=== PATIENT | male | born 1965 | race Caucasian/White ===

== ENCOUNTER → 2016-09-11 | Outpatient (CLI) | payer BC | LOC: RADMRIMAIN 15:44 | PROVIDERS: ATTEND Orthopaedic Surgery | DX: Z53.9 Procedure and treatment not carried out, unspecified reason (principal) ==

== ENCOUNTER → 2016-10-25 | Outpatient (CLI) | payer BC ==
[2016-10-25 18:01] LABS: ALT 55 U/L (21-72); AST 44 U/L (17-59); Alkaline Phosphatase 49 U/L (38-126); Anion Gap 11 mmol/L; Blood Urea Nitrogen 26 mg/dL (9-20); Calcium 9.5 mg/dL (8.4-10.2); Carbon Dioxide 26 mmol/L (22-30); Chloride 105 mmol/L (98-107); Glucose 83 mg/dL (74-99); Non-African American GFR(MDRD) 58 (>60 ml/min/1.73 sqM); Potassium 4.6 mmol/L (3.5-5.1); Sodium 142 mmol/L (137-145); Total Bilirubin 0.4 mg/dL (0.2-1.3); Total Protein 7.6 g/dL (6.3-8.2)
[2016-10-25 18:17] LABS: Follicle Stimulating Hormone 6.7 mIU/mL (1.6-9.7); Prolactin 18.2 ng/mL (3.7-17.9)
== END | disposition home or self-care (01) ==
LOC: LABWHC1 16:15
PROVIDERS: ATTEND Internal Medicine Endocrinology, Diabetes & Metabolism
DX: E29.1 Testicular hypofunction (principal)
CPT/HCPCS: 36415; 80053; 83001; 83002; 84146; 84153; 84403

== ENCOUNTER → 2016-10-25 | Outpatient (CLI) | payer BC ==
[2016-10-25 16:39] LABS: EKG EKG PERFORMED
[2016-10-25 17:53] LABS: Basophils # (A) 0.1 k/uL (0-0.2); Basophils % (A) 1 %; CH 30.4; Eosinophils # (A) 0.3 k/uL (0-0.7); Eosinophils % (A) 3 %; HCT 47.1 % (39.0-53.0); HDW 2.77; HGB 15.7 gm/dL (13.0-17.5); Luc # (Auto) 0.23; Luc % (Auto) 3; Lymphocytes # (A) 2.2 k/uL (1.0-4.8); Lymphocytes % (A) 25 %; MCH 29.9 pg (25.0-35.0); MCHC 33.2 g/dL (31.0-37.0); MCV 89.9 fL (80.0-100.0); Mean Platelet Volume 6.7; Monocytes # (A) 0.8 k/uL (0-1.0); Monocytes % (A) 9 %; Neutrophils # (A) 5.4 k/uL (1.3-7.7); Neutrophils % (A) 60 %; RBC 5.24 m/uL (4.30-5.90); RDW 13.7 % (11.5-15.5); WBC (Perox) 9.28
[2016-10-25 18:00] LABS: Anion Gap 10 mmol/L; Carbon Dioxide 27 mmol/L (22-30); Chloride 105 mmol/L (98-107); Potassium 4.6 mmol/L (3.5-5.1); Sodium 142 mmol/L (137-145)
== END | disposition home or self-care (01) ==
LOC: LABPAT 16:13
PROVIDERS: ATTEND Orthopaedic Surgery
DX: Z01.810 Encounter for preprocedural cardiovascular examination (principal); Z01.812 Encounter for preprocedural laboratory examination; M75.42 Impingement syndrome of left shoulder
CPT/HCPCS: 80051; 85025; 93005

== ENCOUNTER 2016-11-01 05:59 | Day surgery (SDC) | payer BC ==
[2016-10-29 15:17] VITALS: BMI 33.0
--- NOTE | 2016-10-31 20:33 | HP ---
DATE OF ADMISSION: 11/01/2016 Nate Acosta is a 51-year-old patient seen with progressive left shoulder pain. After having treatment options discussed, he elected to proceed with left shoulder arthroscopy. Consent was obtained. His past medical history is noncontributory. Past surgical history is noncontributory. His daily medications are none. ALLERGIES: NONE REPORTED. SOCIAL HISTORY: Patient denies tobacco use. PHYSICAL EVALUATION OF THE LEFT SHOULDER: Flexion is 170 degrees. Abduction is 160 degrees. External rotation is 70 degrees. Tenderness along the anterolateral acromion and rotator cuff insertion site. Impingement positive at 100 degrees. Distal neurovascular exam is intact. Radiographs were obtained, left shoulder revealing type II anterior acromion, acromioclavicular joint osteoarthritis and cystic changes of the tuberosity. An MRI of the left shoulder revealed an acromial spur and tendinitis. IMPRESSION: Left shoulder impingement with possible rotator cuff tear and acromioclavicular joint osteoarthritis. PLAN: Left shoulder arthroscopy with possible rotator cuff repair, possible Munira procedure and debridement.
[~2016-11-01 05:59] MED LIST: DEXAMETHASONE SOD PHOSPHATE 10 MG/ML 1 ML VIAL IV ONE; HYDROmorphone 1 MG/ML 1 ML SYRINGE IVP PRN; LACTATED RINGERS 1,000 ML IV SCH; MIDAZOLAM 2 MG/2 ML VIAL IV PRN; ONDANSETRON 4 MG/2 ML VIAL IVP ONE; ceFAZolin 2 GM in SODIUM CHLORIDE 0.9% 100 ML IVPB ONE
[2016-11-01] MEDS ORDERED: LIDOCAINE 1% 20 ML VIAL (10MG/ML) FOR IV START INTRADERMA ONE (06:48)
[2016-11-01] MEDS ORDERED: fentaNYL (PF) 50 MCG/ML 2 ML AMP IVP ONE (07:08)
[2016-11-01] MEDS ORDERED: MIDAZOLAM 2 MG/2 ML VIAL IVP ONE (07:08)
[2016-11-01] MEDS ORDERED: MIDAZOLAM 2 MG/2 ML VIAL ONE (07:29)
[2016-11-01] MEDS ORDERED: fentaNYL (PF) 50 MCG/ML 2 ML AMP ONE (07:29)
[2016-11-01] MEDS ORDERED: PROPOFOL 10 MG/ML 20 ML VIAL IV ONE (07:29)
[2016-11-01] MEDS ORDERED: LIDOCAINE 2%-EPI 1:100,000 20 ML VIAL ONE (07:29)
[2016-11-01] MEDS ORDERED: SUCCINYLCHOLINE CHLORIDE 100 MG/5 ML SYR IV ONE (07:29)
[2016-11-01] MEDS ORDERED: ROPIVACAINE 5 MG/ML 30 ML VIAL ONE (07:29)
[2016-11-01] MEDS ORDERED: LIDOCAINE 1% INJ 10MG/ML (20 ML MDV) ONE (07:29)
[2016-11-01] MEDS ORDERED: LACTATED RINGERS 1,000 ML IV ONE (08:45)
--- NOTE | 2016-11-01 09:14 | P.ONQ ---
Anesthesiology Proc Note - PNB - Peripheral Nerve Block Performed Left Interscalene Single Time Out Performed: Yes Indication: Acute Post-Operative Pain, Analgesia Specifically requested for management of pain by DrBrayden: Macario Waterman Sedation Type: Sedate with meaningful contact maintained Preparation: Sterile Prep Position: Supine Catheter: None Needle Types: Other (see comment) (22 ga stimuplex) Needle Size: 50mm (2") Needle Gauge: Other (see comment) (22) Technique: Ultrasound Injectate: Other (see comment) (20 cc 0.5% ropivicaine plus 20 cc 2% lidocaine) Adjunct: Epinephrine (see comment for dilution ratio) (1:200,000) Blood Aspirated: No Pain Paresthesia on Injection Noted: No Resistance on Injection: Normal Events: Uneventful and Well Tolerated
--- NOTE | 2016-11-01 09:22 | P.OP ---
Date of Procedure: 11/01/16 Preoperative Diagnosis: Left shoulder impingement Postoperative Diagnosis: 1. Left shoulder rotator cuff tear 2. Left shoulder impingement 3. Left shoulder superficial anterior/superior labral tear Procedure(s) Performed: 1. Left shoulder arthroscopic rotator cuff repair 2. Left shoulder arthroscopic subacromial decompression 3. Left shoulder arthroscopic debridement labral tear Implants: none Anesthesia: GETA, regional (Shoulder block) Surgeon: Macario Waterman Fishing Vessel Deckhand #1: Jose Pruett Estimated Blood Loss (ml): 15 Pathology: none sent Condition: stable Disposition: PACU Indications for Procedure: 51-year-old patient seen with left shoulder pain. After having treatment options discussed, he elected to proceed with left shoulder arthroscopy. Operative Findings: See description of procedure Description of Procedure: Patient underwent a shoulder block by department of anesthesia. The patient was then taken to the operative suite. The patient underwent a general anesthetic by the department of anesthesia. The patient was placed into a lateral position and secured. There was appropriate padding of the bony prominence. Left shoulder was then prepped and draped in normal sterile orthopedic fashion. We placed the extremity in 10 pounds of longitudinal traction. A posterior incision was now made for a posterior working portal site. The trocar and cannula were inserted into the glenohumeral joint. Arthroscopy was initiated. Spinal needle was now inserted anteriorly, to ascertain the anterior working portal site. An incision was now made in that area, a trocar was inserted followed by a probe. There was some superficial tearing of the anterior superior labrum present. There were grade 1 chondral malacia changes of the glenoid. The biceps tendon was absent. The posterior and inferior labrum appeared intact. A motorized shaver was now utilized to debride the labrum down to stable tissue. The residual labrum was probed and found to be stable. Instruments were now removed from the glenohumeral joint. Utilizing the posterior working portal site, the trocar and cannula were inserted into the subacromial space. Arthroscopy initiated. I made an incision 2 fingerbreadths lateral to the acromion. I introduced my trocar followed by my ArthroCare ablator. I now began ablating thick subacromial bursal tissue, which exposed the undersurface of the anterior acromion. This was diminished subacromial space. There was a very prominent anterior acromion. There was also evidence for a bipartite acromion present. A subacromial decompression was now performed with a motorized bur. That bipartite fragment was fairly large and I excised it would destabilize the shoulder. We noted good decompression of subacromial space. I excised some inferior osteophytes off the distal clavicle. The acromioclavicular joint was visualized and noted to be moderately arthritic. I did not think enough to warrant a Munira procedure. I now turned my attention to the rotator cuff tendon. There was an intrasubstance tear along the midportion supraspinatus. I debrided the margins down to stable tissue. The tear measured about 2 cm. I then repaired it with 3 [id number] sutures. The repair was probed and found to be stable. I injected 1 mL of Allogen intra-articular. Instruments now removed from the portal sites. All portal sites were approximated with nylon suture. Sterile dressings were applied followed by a shoulder immobilizer. Tam BRYANT assisted with the procedure. The patient was awakened, transferred to a bed, and taken to recovery in stable condition.
[2016-11-01 09:26] VITALS: TEMP 97.8
[2016-11-01] MEDS ORDERED: KETOROLAC 30 MG/ML 1 ML VIAL IVP ONE (09:52)
[2016-11-01 10:30] VITALS: RESP 18
[2016-11-01 10:43] VITALS: BP 139/85; PULSE 74
== END 2016-11-01 11:14 | disposition home or self-care (01) ==
LOC: OR 05:59
PROVIDERS: ATTEND Orthopaedic Surgery
DX: M75.102 Unspecified rotator cuff tear or rupture of left shoulder, not specified as traumatic (principal); M75.42 Impingement syndrome of left shoulder; S43.492A Other sprain of left shoulder joint, initial encounter; X58.XXXA Exposure to other specified factors, initial encounter; M94.212 Chondromalacia, left shoulder; M25.712 Osteophyte, left shoulder; Z79.899 Other long term (current) drug therapy
CPT/HCPCS: 64415; 29826; 29827; 20610; C1765; J2250; J1100; J0690; J2405; J2001; J3010; J1885; J2795; J0330; J2704

== ENCOUNTER → 2017-01-08 | Outpatient (CLI) | payer BC | END | disposition home or self-care (01) | LOC: LABWHC1 16:27 | PROVIDERS: ATTEND Internal Medicine Endocrinology, Diabetes & Metabolism | DX: E29.1 Testicular hypofunction (principal) | CPT/HCPCS: 36415; 84403 ==

== ENCOUNTER → 2017-05-22 | Outpatient (CLI) | payer BC ==
[2017-05-22 17:12] LABS: HCT 47.7 % (39.0-53.0); HGB 15.9 gm/dL (13.0-17.5); MCHC 33.3 g/dL (31.0-37.0); Mean Platelet Volume 6.3; Platelet Count 291 k/uL (150-450)
== END | disposition home or self-care (01) ==
LOC: LABWHC1 16:23
PROVIDERS: ATTEND Internal Medicine Endocrinology, Diabetes & Metabolism
DX: E29.1 Testicular hypofunction (principal)
CPT/HCPCS: 36415; 84403; 85027

== ENCOUNTER → 2017-07-08 | Outpatient (CLI) | payer BC ==
[2017-07-08 16:55] LABS: HCT 46.4 % (39.0-53.0); HGB 15.3 gm/dL (13.0-17.5); MCH 29.4 pg (25.0-35.0); MCHC 32.9 g/dL (31.0-37.0); MCV 89.2 fL (80.0-100.0); Mean Platelet Volume 6.3; Platelet Count 288 k/uL (150-450); RDW 12.6 % (11.5-15.5); WBC 8.5 k/uL (3.8-10.6)
[2017-07-08 17:05] LABS: Appearance,Urine Clear (Clear); Bilirubin,Urine Negative (Negative); Blood,Urine Negative (Negative); Color,Urine Yellow; Glucose,Urine (UA) Negative (Negative); Ketones,Urine Negative (Negative); Leukocyte Esterase,Urine Negative (Negative); Nitrite,Urine Negative (Negative); Protein,Urine Trace (Negative); Specific Gravity,Urine 1.025 (1.001-1.035); Urobilinogen,Urine <2.0 mg/dL (<2.0)
[2017-07-08 17:12] LABS: ALT 41 U/L (21-72); AST 37 U/L (17-59); Albumin 4.7 g/dL (3.5-5.0); Alkaline Phosphatase 40 U/L (38-126); Anion Gap 11 mmol/L; Blood Urea Nitrogen 25 mg/dL (9-20); Calcium 9.8 mg/dL (8.4-10.2); Carbon Dioxide 29 mmol/L (22-30); Chloride 101 mmol/L (98-107); Glucose 87 mg/dL (74-99); Sodium 141 mmol/L (137-145); Total Bilirubin 0.4 mg/dL (0.2-1.3); Total Protein 7.9 g/dL (6.3-8.2)
[2017-07-08 17:35] LABS: INR 1.1 (<1.2); Partial Thromboplastin Time 24.1 sec (22.0-30.0); Prothrombin Time 10.9 sec (9.0-12.0)
== END | disposition home or self-care (01) ==
LOC: LABPAT 16:21
PROVIDERS: ATTEND Orthopaedic Surgery
DX: Z01.812 Encounter for preprocedural laboratory examination (principal); Z01.818 Encounter for other preprocedural examination
CPT/HCPCS: 36415; 80053; 81003; 85027; 85610; 85730; 86850; 86900; 86901; 87070

== ENCOUNTER 2017-07-16 05:40 | Inpatient (IN) | payer BC ==
[2017-07-09 11:34] VITALS: BMI 33.0
[~2017-07-16 05:40] MED LIST changes: +ACETAMINOPHEN TAB 500 MG TAB PO ONE; -HYDROmorphone 1 MG/ML 1 ML SYRINGE IVP PRN; -LACTATED RINGERS 1,000 ML IV SCH; +MELOXICAM 7.5 MG TAB PO ONE; +MORPHINE SULFATE 4 MG/ML SYRINGE IV PRN; +SCOPOLAMINE 1.5MG/72HR PATCH TRANSDERM ONE; +TRANEXAMIC ACID 1,000 MG in SODIUM CHLORIDE 0.9% 50 ML IVPB ONE; -ceFAZolin 2 GM in SODIUM CHLORIDE 0.9% 100 ML IVPB ONE
[2017-07-16] MEDS ORDERED: ROPIVACAINE 246.25 MG, EPINEPHrine 0.5 MG, KETOROLAC 30 MG, cloNIDine HCL/PF 80 MCG, WA... MISCELLANE ONE ×5 (06:02)
[2017-07-16] MEDS ORDERED: LIDOCAINE 1% 20 ML VIAL (10MG/ML) FOR IV START INTRADERMA ONE (06:04)
[2017-07-16] MEDS: LACTATED RINGERS 1,000 ML IV SCH (06:32)
[2017-07-16] MEDS ORDERED: MAGNESIUM HYDROXIDE 2,400 MG/10 ML CUP PO PRN (06:54)
[2017-07-16] MEDS ORDERED: hydrOXYzine PAMOATE 25 MG CAP PO PRN (06:54)
[2017-07-16] MEDS ORDERED: HYDROcodone/APAP 5-325MG 1 EACH TAB PO PRN ×2 (06:54)
[2017-07-16] MEDS ORDERED: DIAZEPAM 5 MG TAB PO PRN ×2 (06:54)
[2017-07-16] MEDS ORDERED: NALOXONE 0.4 MG/ML 1 ML VIAL IV PRN (06:54)
[2017-07-16] MEDS ORDERED: MORPHINE SULFATE 4 MG/ML SYRINGE IVP PRN ×3 (06:54)
[2017-07-16] MEDS ORDERED: ONDANSETRON 4 MG/2 ML VIAL IVP PRN (06:54)
[2017-07-16] MEDS ORDERED: SODIUM CHLORIDE 0.9% 100 ML BAG ONE (07:00)
[2017-07-16] MEDS ORDERED: MIDAZOLAM 2 MG/2 ML VIAL ONE (07:00)
[2017-07-16] MEDS ORDERED: PROPOFOL 10 MG/ML 20 ML VIAL IV ONE (07:00)
[2017-07-16] MEDS ORDERED: fentaNYL (PF) 50 MCG/ML 2 ML AMP ONE (07:00)
[2017-07-16] MEDS ORDERED: TRANEXAMIC ACID 1,000 MG/10 ML VIAL ONE (07:00)
[2017-07-16] MEDS: ceFAZolin IN SWFI 2 GM/20 ML SYRINGE IVP ONE ×2 (07:00→07:10)
[2017-07-16] MEDS ORDERED: ceFAZolin 3,000 MG in SODIUM CHLORIDE 0.9% IRRIGATIO 3,000 ML IRRIGATION ONE (07:30)
--- NOTE | 2017-07-16 08:34 | P.OP ---
Date of Procedure: 07/16/17 Preoperative Diagnosis: Severe osteoarthritis right hip Postoperative Diagnosis: Severe osteoarthritis right hip Procedure(s) Performed: Right total hip arthroplasty with a direct anterior approach Implants: Grider and nephew Polarstem size 4 standard Grider [employer] Nephew R3, 3 hole acetabular shell, 54 mm Grider [employer] Nephew reflection 6.5 mm cancellus screw, 20 mm 2 Grider [employer] Nephew R3, XLPE 20 acetabular liner Grider & Nephew Oxinium femoral head 36 m, +0 All components were press-fit. The articulation is Oxinium on polyethylene. Surgeon: Siddhartha Wells Digital Product Specialist #1: Zuleika Iraheta Estimated Blood Loss (ml): 400 (179 mL returned with Cell Saver) Pathology: other (Femoral head) Condition: stable Disposition: PACU Indications for Procedure: After failure of conservative treatment we discussed the surgical and nonsurgical treatment options at length. Patient wishes to proceed with a total hip arthroplasty with a direct anterior approach. Complications specific to this procedure were discussed at length, including but not limited to infection, leg length discrepancy, dislocation, and nerve injury. Patient is aware of all these complications and informed consent was obtained Operative Findings: The operative findings are consistent with severe osteoarthritis of the right hip Description of Procedure: Patient was seen and evaluated in the preoperative area, consent was reviewed, and the surgical site was marked with a skin marker. Patient was then brought to the operating room and given prophylactic antibiotics intravenously. 1 g of Tranexamic acid was also given. A spinal anesthetic was administered by the anesthesia department. The patient was then placed on the [place] table with the bony prominences well-padded. The hip area was then prepped and draped in usual sterile fashion. A universal timeout was then performed, which confirmed the patient's name, surgical site, ALLERGIES, and procedure being performed. Next the incision site was located at 1 cm distal and 1 cm lateral to the anterior superior iliac spine. The skin and subcutaneous tissues were sharply incised. Incision was carefully dissected down to the fascia overlying the tensor fascia michelle muscle. This fascia was then incised in line with the incision. Next, using blunt finger dissection, the tensor fascia michelle muscle was dissected off its investing fascia. The muscle was then carefully retracted laterally with a cobra retractor over the lateral neck of the femur. Next, the circumflex vessels were identified and cauterized using the AquaMantis device. The anterior hip capsule was then exposed. The capsule was then opened and an inverted T fashion. Cobra retractors were then placed intracapsularly. The proximal femur was then visualized. The femoral neck was then osteotomized appropriate level above the lesser trochanter. Small amount of traction was placed with the [place] table. A small wedge of bone was then removed from the remaining femoral head. Next, using a corkscrew femoral head was easily removed from the acetabulum. On gross visual inspection, the femoral head had complete loss of articular cartilage in multiple periarticular osteophytes. Attention was then turned to the acetabulum. the acetabulum was exposed and any remaining labrum was excised. Sequential reaming of the acetabulum was performed using fluoroscopic guidance. When the appropriate size was reached, a trial was then placed. The position and fit of the trial was checked with fluoroscopy. The trial was then removed. Then, using fluoroscopic guidance, the final implant was impacted at 20 of anteversion and 40 of abduction, and fully seated in the acetabulum. 2 screws were then placed in the acetabulum. Again fluoroscopy was used to check position of the screws. Next, the liner was then impacted, with a 20 elevated liner located in the anterior superior quadrant. Component locking was confirmed. Attention was then directed to the femur. With the aid of the [place] table, the femur was externally rotated to approximately 130, extended, and abducted under the opposite leg. A side hook was then placed under the proximal femur, and the side hook elevator was used to elevate the proximal femur. Retractors were then placed. A capsular release was performed, as well as a release of the conjoined tendon, which afforded excellent visualization of the proximal femur. Next, a box osteotome was used to lateralize the proximal femur. A hand outside cutter was then used to locate the femoral canal. Sequential broaching was then performed with appropriate size which afforded excellent fixation in the proximal femur. A trial was then placed with appropriate head and neck, and the hip was gently reduced with the aid of the [place] table. Fluoroscopy was then used to check position of the components, as well as to ensure equal leg lengths. The hip was then gently dislocated and the trials were then removed. Final implants were then impacted and the hip was again reduced. Final fluoroscopic x-rays confirmed that the components were in anatomic position, as well as equal leg lengths. The hip was also taken through range of motion, and found to be stable. The hip was then copiously irrigated with antibiotic solution with pulsatile lavage. The hip was then irrigated with Irrisept solution. The soft tissues were then injected with a ropivacaine solution, which consisted of 246.25 mg of ropivacaine, 0.5 mg of epinephrine, 30 mg of Toradol, 80 g of clonidine, and 48.45 mL of sterile water, for a total of 100 mL of fluid injected. A second dose of 1 g of Tranexamic acid was also given. the fascia was then closed with 2-0 strata fix suture. The subcutaneous tissue was closed with 3-0 Vicryl. The subcuticular tissue was closed with 3-0 strata fix suture. The skin was then closed with Dermabond glue and a sterile silver dressing. The patient was then transferred to the recovery room in stable condition. The shipping and receiving assistant ANNETTE Crowe was required due to the complexity of surgery, and the need for skilled assistant elementary teacher for positioning, draping, exposure, retraction, and closure of the wound.
[2017-07-16] MEDS ORDERED: LACTATED RINGERS 1,000 ML IV ONE (08:42)
--- NOTE | 2017-07-16 09:41 | XR ---
EXAMINATION TYPE: XR Hip Limited RT DATE OF EXAM: 07/16/2017 COMPARISON: NONE HISTORY: 51-year-old male status post hip surgery, assess surgical alignment TECHNIQUE: Portable AP view FINDINGS: Image shows placement of right total hip arthroplasty. Both acetabular cup and femoral short stem com ponents of the prosthesis appear well seated without periprosthetic fracture. Alignment grossly anato toribio. Soft tissue air related to recent operation. IMPRESSION: Uncomplicated postoperative appearance right total hip arthroplasty.
--- NOTE | 2017-07-16 10:05 | FL ---
EXAMINATION TYPE: FL guidance operating room, XR Hip Limited RT DATE OF EXAM: 07/16/2017 COMPARISON: NONE HISTORY: 51-year-old male right anterior hip replacement FINDINGS: 3 images during intraoperative fluoroscopy with right hip total arthroplasty. FLUOROSCOPY Fluoroscopy time of 45 seconds was used during anterior right hip replacement. 3 image/s document/s the procedure. IMPRESSION: Intraoperative fluoroscopy as above.
[2017-07-16 12:57] VITALS: RESP 16
[2017-07-16] MEDS: ceFAZolin IN SWFI 2 GM/20 ML SYRINGE IVP SCH ×2 (15:26→22:33)
[2017-07-16] MEDS: SODIUM CHLORIDE 0.9% 1,000 ML IV SCH ×2 (15:30→22:24)
[2017-07-16] MEDS ORDERED: KETOROLAC 30 MG/ML 1 ML VIAL IM STA (16:08)
[2017-07-16] MEDS: KETOROLAC 30 MG/ML 1 ML VIAL IVP PRN ×2 (17:15→22:33)
--- NOTE | 2017-07-16 20:48 | CONS ---
CONSULTATION REASON FOR CONSULTATION: Advice regarding DJD and other multiple medical issues, requested by Orthopedic Surgery. HISTORY OF PRESENT ILLNESS: This 51-year-old gentleman with a past medical history of DJD and history of left rotator cuff surgery underwent right total hip joint arthroplasty for severe DJD of the right hip. No chest pain. No palpitations. No fever. PAST MEDICAL HISTORY: 1. History of DJD. 2. History of left rotator cuff surgery. 3. History of motion sickness. HOME MEDICATIONS: Clomiphene citrate 25 mg p.o. daily. ALLERGIES: NONE. FAMILY HISTORY: No history of heart disease or strokes in the family. SOCIAL HISTORY: No history of smoking. Occasional alcohol intake. REVIEW OF SYSTEMS: ENT: No diminished hearing. No diminished vision. CARDIOVASCULAR SYSTEM: No angina, palpitations. RESPIRATORY SYSTEM: No cough, hemoptysis. GI: No nausea, vomiting. : No dysuria or retention. NERVOUS SYSTEM: No numbness, weakness. ALLERGY/IMMUNOLOGY: No asthma, hayfever. MUSCULOSKELETAL: As mentioned earlier. HEMATOLOGY/ONCOLOGY: No history of anemia. ENDOCRINE: No history of diabetes, hypothyroidism. CONSTITUTIONAL: As mentioned earlier. DERMATOLOGY: Negative. RHEUMATOLOGY: Negative. PSYCHIATRY: As mentioned earlier. PHYSICAL EXAMINATION: Patient alert and oriented x3. Pulse 67, blood pressure 121/84, respiration 16, temperature 98 degrees, pulse ox 97% on room air. HEENT: Conjunctivae normal. Oral mucosa moist. NECK: No jugular venous distention. No carotid bruit. No lymph node enlargement. CARDIOVASCULAR SYSTEM: S1, S2 muffled. No S3. No S4. RESPIRATORY SYSTEM: Breath sounds diminished at the bases. No rhonchi. No crackles. ABDOMEN: Soft, non-tender. LEGS: Status post right hip arthroplasty. NERVOUS SYSTEM: Higher functions as mentioned earlier. Moves all 4 limbs. No focal motor or sensory deficit. LYMPHATICS: No lymph node palpable in neck, axillae or groin. SKIN: No ulcer, rash, bleeding. LABS: Labs are not available. The preoperative labs showed CBC, coags, chemistry showed BUN 25, 18.2. EKG is normal. ASSESSMENT: 1. Status post total right hip arthroplasty. 2. History of degenerative joint disease. 3. History of left rotator cuff surgery. 4. History of motion sickness. RECOMMENDATIONS AND DISCUSSION: In this 51-year-old gentleman who presented with multiple medical issues, at this time I recommend to continue current medications, continue symptomatic treatment. Otherwise, continue incentive spirometry, DVT prophylaxis. I recommend close followup with the primary physician in the outpatient setting. We will follow the patient during his hospitalization. The patient is medically stable. Thank you, Dr. Wells. ALDEN / DEBBIE: [id number] / MAGGI
[2017-07-16] MEDS ORDERED: SENNOSIDES-DOCUSATE SODIUM 1 EACH TAB PO SCH (21:00)
[2017-07-16] MEDS: ASPIRIN 325 MG TAB PO SCH (21:22)
[2017-07-17] MEDS: LACTATED RINGERS 1,000 ML IV SCH (04:48)
[2017-07-17] MEDS: KETOROLAC 30 MG/ML 1 ML VIAL IVP PRN ×2 (05:01→11:46)
[2017-07-17 07:51] LABS: Basophils % (A) 0 %; Eosinophils # (A) 0.1 k/uL (0-0.7); Eosinophils % (A) 1 %; HCT 38.9 % (39.0-53.0); HGB 12.8 gm/dL (13.0-17.5); Lymphocytes % (A) 17 %; MCH 28.8 pg (25.0-35.0); MCV 87.2 fL (80.0-100.0); Mean Platelet Volume 6.9; Monocytes # (A) 1.1 k/uL (0-1.0); Monocytes % (A) 9 %; Neutrophils # (A) 8.4 k/uL (1.3-7.7); Neutrophils % (A) 71 %; Platelet Count 241 k/uL (150-450); RBC 4.46 m/uL (4.30-5.90); RDW 12.7 % (11.5-15.5); WBC 11.7 k/uL (3.8-10.6)
[2017-07-17 08:35] VITALS: BP 124/82; PULSE 68; TEMP 99.1
[2017-07-17] MEDS: ASPIRIN 325 MG TAB PO SCH (08:36)
[2017-07-17] MEDS ORDERED: MELOXICAM 7.5 MG TAB PO SCH (09:00)
--- NOTE | 2017-07-17 09:02 | P.DS ---
Providers Date of admission: 07/16/17 05:40 Expected date of discharge: 07/17/17 Attending physician: Siddhartha Wells Consults: 07/16/17 06:54 Consult Physician Routine Consulting Provider: Diane Ashley Consult Reason/Comments: medical management Do you want consulting provider notified?: Yes Primary care physician: Stated None - Discharge Diagnosis(es) (1) Primary osteoarthritis of right hip Current Visit: Yes Status: Acute (2) S/P total hip arthroplasty Current Visit: Yes Status: Acute Hospital Course: This is a 51-year-old male with known history of degenerative arthritis of the right hip. The patient presents for evaluation. After discussion and consideration patient elects to proceed with total hip arthroplasty. The patient is seen preoperatively by Dr. Wells and medically cleared for surgery by their primary care physician. Patient is admitted to [facility] on 07/16/2017 for total hip arthroplasty. The procedures performed without complication or sequelae. The patient is doing well postoperatively. Labs and vital signs are stable on day of discharge. On day of discharge patient's hip incision is healing well. There is minimal erythema. There is no drainage noted at this time. There is minimal soft tissue swelling to the hip and thigh. Patient has full foot and ankle motion without difficulty or pain. Neurovascular status to the right lower extremity is intact. Patient is discharged home in good condition. Please see med rec for accurate list of home medications. Plan - Discharge Summary Discharge Rx Participant: Yes New Discharge Prescriptions: New Aspirin 325 mg PO BID #60 tab HYDROcodone/APAP 5-325MG [Lewis 5-325] 1 - 2 tab PO Q4-6H PRN #90 tab PRN Reason: Pain Ketorolac [Toradol] 10 mg PO Q6HR #20 tab Sennosides [Senokot] 1 tab PO BID #60 tablet No Action clomiPHENE CITRATE 25 mg PO DAILY Discharge Medication List clomiPHENE CITRATE 25 mg PO DAILY 07/09/17 [History] Aspirin 325 mg PO BID #60 tab 07/17/17 [Rx] HYDROcodone/APAP 5-325MG [Lewis 5-325] 1 - 2 tab PO Q4-6H PRN #90 tab 07/17/17 [ Rx] Ketorolac [Toradol] 10 mg PO Q6HR #20 tab 07/17/17 [Rx] Sennosides [Senokot] 1 tab PO BID #60 tablet 07/17/17 [Rx] Follow up Appointment(s)/Referral(s): Siddhartha Wells DO [Doctor of Osteopathic Medicine] - 2 Weeks Patient Instructions/Handouts: Anterior Hip Replacement (DC) Activity/Diet/Wound Care/Special Instructions: Weightbearing as tolerated with walker Leave dressing intact. Dressing may be removed by home care nurse in 10 days, 07/26/2017. May shower with dressing on. Follow[facility]up with [facility] in 2 weeks, please call with any questions or concerns [phone] Discharge Disposition: HOME WITH HOME HEALTH SERVICES
[2017-07-17 12:42] LABS: Appearance,Urine Clear (Clear); Bilirubin,Urine Negative (Negative); Blood,Urine Negative (Negative); Color,Urine Yellow; Glucose,Urine (UA) Negative (Negative); Ketones,Urine Negative (Negative); Leukocyte Esterase,Urine Negative (Negative); Protein,Urine Trace (Negative); Specific Gravity,Urine 1.031 (1.001-1.035); Urobilinogen,Urine <2.0 mg/dL (<2.0)
--- NOTE | 2017-07-17 22:22 | PN ---
PROGRESS NOTE DATE OF SERVICE: 07/17/2017 This 51-year-old gentleman who was admitted with right hip arthroplasty is improving significantly. His white count is slightly elevated. No chest pain. No palpitations. No fever. On exam, alert and oriented x3. Pulse 68, blood pressure 124/82, respiration 16, temperature 99.1, pulse ox 94% on room air. HEENT: Conjunctivae normal. NECK: No jugular venous distention. CARDIOVASCULAR SYSTEM: S1, S2 muffled. RESPIRATORY SYSTEM: Breath sounds diminished at the bases. No rhonchi. ABDOMEN: Soft. NERVOUS SYSTEM: No focal deficit.. LEGS: Status post surgery. LABS: WBC 11.7. UA is noted. ASSESSMENT: 1. Status post right total knee arthroplasty. 2. Increased white count, possibly reactive. 3. Urinary tract infection ruled out. 4. History of degenerative joint disease. 5. History of left rotator cuff surgery. 6. History of motion sickness. RECOMMENDATIONS AND DISCUSSION: I recommend to continue current medication, continue with the monitoring, symptomatic treatment. Otherwise, I would recommend close followup with the primary physician. There is no evidence of UTI at this time. Continue to monitor. Resume the home medications. Further recommendations to follow. MMODL / IJN: [id number] /
== END 2017-07-17 14:18 | disposition home health service (06) | DRG 470 ==
LOC: 2ORMAIN 05:40 → 3SUR 08:55
PROVIDERS: ADMIT Orthopaedic Surgery; ATTEND Orthopaedic Surgery
PROC: 30233N0 Transfusion of Autologous Red Blood Cells into Peripheral Vein, Percutaneous Approach (ICD-10-PCS; 2017-07-16)
PROC: 0SR906A Replacement of Right Hip Joint with Oxidized Zirconium on Polyethylene Synthetic Substitute, Uncemented, Open Approach (ICD-10-PCS; principal; 2017-07-16 07:00)
DX: M16.11 Unilateral primary osteoarthritis, right hip (principal); E66.9 Obesity, unspecified; E29.1 Testicular hypofunction; F41.9 Anxiety disorder, unspecified; I10 Essential (primary) hypertension; N40.0 Benign prostatic hyperplasia without lower urinary tract symptoms; Z68.33 Body mass index [BMI] 33.0-33.9, adult
CPT/HCPCS: 73501; 81003; 85025; 86850; 86900; 86901; 88300